=== PATIENT | male | born 1955 | race Hispanic/Latino ===

== ENCOUNTER 2020-03-10 17:09 | Emergency (ER) | payer MEDICARE, OTHER ==
[~2020-03-10] VITALS: Ht 172.7 cm; Wt 72.1 kg
[~2020-03-10 17:09] MED LIST: ALLOPURINOL100 MG PO; AMLODIPINE BESIL1 GM PO; ASPIR 8181 MG PO; ASPIRIN81 MG PO; ATORVASTATIN CA20 MG PO; CALCITRIOL0.25 MCG PO; FERROUS SULFAT325 MG PO; HYDRALAZINE HCL25 MG PO; Hydralazine Hcl PO; ISOSORBIDE MONO20 MG PO; JANUVIA100 MG PO; LANTUS100 UNITS/ SQ; LASIX40 MG PO; LOPRESSOR25 MG PO; METOLAZONE5 MG PO; METOPROLOL TART25 MG PO; PANTOPRAZOLE SO40 MG PO; PLAVIX75 MG PO; ROCALTROL0.25 MCG PO; SODIUM BICARBO650 MG PO; SULFAMETHOXAZO1 EAC1 PO; VITAMIN D3 PO; ZOFRAN ODT4 MG PO
[2020-03-10] MEDS ORDERED: ACETAMINOPHEN 325 MG TAB PO ONE (18:15)
[2020-03-10] MEDS ORDERED: AZITHROMYCIN 500MG/NS 250 ML 250 ML IV SCH (18:15)
[2020-03-10] MEDS ORDERED: CEFTRIAXONE SOD 1 GM/NS 50 ML 50 ML IV ONE (18:15)
[2020-03-10 18:19] LABS: BASOPHILS % 0.3 % (0.0-1.0); EOSINOPHILS % 0.6 % (0.0-6.0); HEMATOCRIT 31.2 % (38.2-49.6); HEMOGLOBIN 9.7 g/dL (14.0-18.0); LYMPHOCYTES # (AUTO) 0.6 (1.0-3.2); LYMPHOCYTES % 18.5 % (18.0-39.1); MEAN CORPUSCULAR HEMOGLOBIN 26.8 pg (28-32); MEAN CORPUSCULAR HGB CONC 31.1 g/dL (31-35); MEAN CORPUSCULAR VOLUME 86.2 fL (81-99); MONOCYTES # (AUTO) 0.2 (0.2-0.8); MONOCYTES % 7.6 % (4.4-11.3); NEUTROPHILS # (AUTO) 2.3 (2.1-6.9); NEUTROPHILS % 72.4 % (38.7-80.0); PLATELET COUNT 76 x10e3/uL (140-360); RED BLOOD COUNT 3.62 x10e6/uL (4.3-5.7); RED CELL DISTRIBUTION WIDTH 17.6 % (11.7-14.4)
[2020-03-10 18:34] LABS: INR 0.89; PROTHROMBIN TIME 12.6 seconds (11.9-14.5)
--- NOTE | 2020-03-10 18:56 | Diagnostic Imaging Report ---
EXAMINATION: CHEST SINGLE (PORTABLE) COMPARISON: None INDICATION: Shortness of breath, fever ^Y ^sob ^[id number] ^1820 DISCUSSION: Frontal view of the chest obtained at 1830 hours. HEART AND MEDIASTINUM: The heart is enlarged. The mediastinum is normal in morphology LINES: AICD lead is intact and terminates in the right ventricle. Battery pack is in the left chest wall. LUNGS/PLEURA: Diffuse hyperinflation suggestive of small airways disease. Central pulmonary vasculature is prominent. No infiltrates or interstitial edema. No pleural effusion or pneumothorax. BONES AND SOFT TISSUES: Median sternotomy wires are intact. There are degenerative changes of the shoulders. The soft tissues are normal. IMPRESSION: 1. Cardiomegaly and central vascular congestion, possibly chronic. No evidence of CHF. 2. Pulmonary hyperinflation suggestive of COPD. No infiltrates. Signed by: Dr. Mary Ellen Plaza MD on 03/10/2020 6:52 PM
[2020-03-10 19:15] LABS: CLARITY,URINE CLEAR (CLEAR); COLOR,URINE YELLOW (YELLOW)
[2020-03-10 19:16] LABS: BILIRUBIN,URINE SMALL (NEGATIVE); KETONES,URINE TRACE (NEGATIVE); LEUKOCYTE ESTERASE ,URINE NEGATIVE (NEGATIVE); NITRITE,URINE NEGATIVE (NEGATIVE); PROTEIN,URINE DIPSTICK >=300 (NEGATIVE); URINE UROBILINOGEN 0.2 mg/dL (0.2 - 1)
[2020-03-10 19:27] LABS: BACTERIA,URINE MANY /HPF; EPITHELIAL CELLS,URINE MANY /LPF; RBC,URINE 0-5 /HPF (0-5); WBC,URINE (MAN) 21-50 /HPF (0-5)
[2020-03-10 19:34] LABS: CREATINE KINASE MB 2.1 ng/mL (0-5.0)
--- NOTE | 2020-03-10 19:42 | Emergency Department Note ---
History of Present Illnes History of Present Illness Chief Complaint: COVID PUI History of Present Illness This is a 64 year old male c/o sob x 1 hr [employer] denies cp denies copd/asthma not on breathing tx former smoker does not drink on dialysis pt last dialysed this past wed (dialysis m/w/f) denies n/v c/o a little diarrhea denies muscle aches/chills pt states he was swabbed at dr's office yesterday went to see pcp for the same came in today because sob is worse. FEVER HERE Historian: Patient Arrival Mode: Car Derrick Helper Required: No Onset (how long ago): hour(s) Radiation: Reports non-radiation Severity: moderate Onset quality: gradual Timing of current episode: constant Progression: unchanged Chronicity: new Context: Denies recent illness Relieving factors: none Exacerbating factors: none Associated symptoms: Reports fever/chills, Reports shortness of breath Treatments prior to arrival: none Past Medical/Family History Physician Review I have reviewed the patient's past medical and family history. Any updates have been documented here. Past Medical History Recent Fever: Yes Clinical Suspicion of Infectio: Yes New/Unexplained Change in Ment: No Past Medical History: Hypertension, Diabetes, Hemodyalisis, Hyperlipedemia Other Medical History: ESRD Other Surgery: Cardiac stents Social History Smoking Cessation: Former smoker Counseling Performed: No Alcohol Use: None Any Illegal Drug Use: No TB Exposure/Symptoms: No Physically hurt or threatened: No Other Last Tetanus: unknown Is patient up to date on immun: Yes Last Flu: utd Last Pneumovax: utd Review of Systems Review of Systems Constitutional: Reports as per HPI, Reports fever EENTM: Reports no symptoms Cardiovascular: Reports no symptoms Respiratory: Reports as per HPI Gastrointestinal: Reports no symptoms Genitourinary: Reports no symptoms Musculoskeletal: Reports no symptoms Integumentary: Reports no symptoms Neurological: Reports no symptoms Psychological: Reports no symptoms Endocrine: Reports no symptoms Hematological/Lymphatic: Reports no symptoms Physical Exam Related Data Allergies: Coded Allergies: No Known Allergies (Unverified , 04/16/16) Triage Vital Signs Vital Signs Date Time Temp Pulse Resp B/P (MAP) Pulse Ox O2 Delivery O2 Flow Rate FiO2 03/10/20 17:44 102.2 64 16 124/62 92 Vital signs reviewed: Yes Physical Exam CONSTITUTIONAL Constitutional: Present well-developed, Present well-nourished HENT HENT: Present normocephalic, Present atraumatic, Present oropharynx clear/moist, Present nose normal HENT L/R: Present left ext ear normal, Present right ext ear normal EYES Eyes: Reports PERRL, Reports conjunctivae normal NECK Neck: Present ROM normal PULMONARY Pulmonary: Present rales (BIBASILAR), Present other (DECREASED BS'S THROUGHOUT) CARDIOVASCULAR Cardiovascular: Present regular rhythm, Present heart sounds normal, Present capillary refill normal, Present normal rate GASTROINTESTINAL Abdominal: Present soft, Present nontender, Present bowel sounds normal GENITOURINARY Genitourinary: Present exam deferred SKIN Skin: Present warm, Present dry MUSCULOSKELETAL Musculoskeletal: Present ROM normal NEUROLOGICAL Neurological: Present alert, Present oriented x 3, Present no gross motor or sensory deficits PSYCHOLOGICAL Psychological: Present mood/affect normal, Present judgement normal Results Laboratory Result Diagram: 03/10/20 7644 Laboratory Laboratory Tests Test 03/10/20 17:50 White Blood Count 3.14 x10e3/uL (4.8-10.8) Red Blood Count 3.62 x10e6/uL (4.3-5.7) Hemoglobin 9.7 g/dL (14.0-18.0) Hematocrit 31.2 % (38.2-49.6) Mean Corpuscular Volume 86.2 fL (81-99) Mean Corpuscular Hemoglobin 26.8 pg (28-32) Mean Corpuscular Hemoglobin Concent 31.1 g/dL (31-35) Red Cell Distribution Width 17.6 % (11.7-14.4) Platelet Count 76 x10e3/uL (140-360) Neutrophils (%) (Auto) 72.4 % (38.7-80.0) Lymphocytes (%) (Auto) 18.5 % (18.0-39.1) Monocytes (%) (Auto) 7.6 % (4.4-11.3) Eosinophils (%) (Auto) 0.6 % (0.0-6.0) Basophils (%) (Auto) 0.3 % (0.0-1.0) Neutrophils # (Auto) 2.3 (2.1-6.9) Lymphocytes # (Auto) 0.6 (1.0-3.2) Monocytes # (Auto) 0.2 (0.2-0.8) Eosinophils # (Auto) 0.0 (0.0-0.4) Basophils # (Auto) 0.0 (0.0-0.1) Absolute Immature Granulocyte (auto 0.02 x10e3/uL (0-0.1) Prothrombin Time 12.6 seconds (11.9-14.5) Prothromb Time International Ratio 0.89 Activated Partial Thromboplast Time 28.0 seconds (23.8-35.5) Urine Color Yellow (YELLOW) Urine Clarity Clear (CLEAR) Urine pH 5 (5 - 7) Urine Specific [place] >=1.030 (1.010-1.025) Urine Protein >=300 (NEGATIVE) Urine Glucose (UA) Negative (NEGATIVE) Urine Ketones Trace (NEGATIVE) Urine Blood Negative (NEGATIVE) Urine Nitrite Negative (NEGATIVE) Urine Bilirubin Small (NEGATIVE) Urine Urobilinogen 0.2 mg/dL (0.2 - 1) Urine Leukocyte Esterase Negative (NEGATIVE) Urine RBC 0-5 /HPF (0-5) Urine WBC 21-50 /HPF (0-5) Urine Epithelial Cells Many /LPF (NONE) Urine Bacteria Many /HPF (NONE) Sodium Level 134 mmol/L (136-145) Potassium Level 4.0 mmol/L (3.5-5.1) Chloride Level 92 mmol/L (98-107) Carbon Dioxide Level 27 mmol/L (22-29) Anion Gap 19.0 mmol/L (8-16) Blood Urea Nitrogen 62 mg/dL (7-26) Creatinine 10.98 mg/dL (0.72-1.25) Estimat Glomerular Filtration Rate 5 ML/MIN (60-) BUN/Creatinine Ratio 6 (6-25) Glucose Level 155 mg/dL (74-118) Lactic Acid Level 1.1 mmol/L (0.5-2.0) Calcium Level 6.6 mg/dL (8.4-10.2) Total Bilirubin 0.3 mg/dL (0.2-1.2) Aspartate Amino Transf (AST/SGOT) 34 IU/L (5-34) Alanine Aminotransferase (ALT/SGPT) 19 IU/L (0-55) Alkaline Phosphatase 67 IU/L (40-150) Creatine Kinase 399 IU/L (30-200) Creatine Kinase MB 2.10 ng/mL (0-5.0) Troponin I 0.150 ng/mL (0-0.300) Total Protein 7.2 g/dL (6.5-8.1) Albumin 3.1 g/dL (3.5-5.0) Globulin 4.1 g/dL (2.3-3.5) Albumin/Globulin Ratio 0.8 (0.8-2.0) Laboratory Tests Test 03/10/20 17:50 White Blood Count 3.14 x10e3/uL (4.8-10.8) Red Blood Count 3.62 x10e6/uL (4.3-5.7) Hemoglobin 9.7 g/dL (14.0-18.0) Hematocrit 31.2 % (38.2-49.6) Mean Corpuscular Volume 86.2 fL (81-99) Mean Corpuscular Hemoglobin 26.8 pg (28-32) Mean Corpuscular Hemoglobin Concent 31.1 g/dL (31-35) Red Cell Distribution Width 17.6 % (11.7-14.4) Platelet Count 76 x10e3/uL (140-360) Neutrophils (%) (Auto) 72.4 % (38.7-80.0) Lymphocytes (%) (Auto) 18.5 % (18.0-39.1) Monocytes (%) (Auto) 7.6 % (4.4-11.3) Eosinophils (%) (Auto) 0.6 % (0.0-6.0) Basophils (%) (Auto) 0.3 % (0.0-1.0) Neutrophils # (Auto) 2.3 (2.1-6.9) Lymphocytes # (Auto) 0.6 (1.0-3.2) Monocytes # (Auto) 0.2 (0.2-0.8) Eosinophils # (Auto) 0.0 (0.0-0.4) Basophils # (Auto) 0.0 (0.0-0.1) Absolute Immature Granulocyte (auto 0.02 x10e3/uL (0-0.1) Prothrombin Time 12.6 seconds (11.9-14.5) Prothromb Time International Ratio 0.89 Activated Partial Thromboplast Time 28.0 seconds (23.8-35.5) Urine Color Yellow (YELLOW) Urine Clarity Clear (CLEAR) Urine pH 5 (5 - 7) Urine Specific [place] >=1.030 (1.010-1.025) Urine Protein >=300 (NEGATIVE) Urine Glucose (UA) Negative (NEGATIVE) Urine Ketones Trace (NEGATIVE) Urine Blood Negative (NEGATIVE) Urine Nitrite Negative (NEGATIVE) Urine Bilirubin Small (NEGATIVE) Urine Urobilinogen 0.2 mg/dL (0.2 - 1) Urine Leukocyte Esterase Negative (NEGATIVE) Urine RBC 0-5 /HPF (0-5) Urine WBC 21-50 /HPF (0-5) Urine Epithelial Cells Many /LPF (NONE) Urine Bacteria Many /HPF (NONE) Creatine Kinase MB 2.10 ng/mL (0-5.0) Troponin I 0.150 ng/mL (0-0.300) Lab results reviewed: Yes Laboratory comments CHEMISTRIES PENDING DUE TO LAB MACHINE DOWN AND SPECIMEN SENT TO ANOTHER LAB Imaging Imaging results reviewed: Yes Impressions Procedure: [id number] DX/CHEST SINGLE (PORTABLE) Exam Date: 03/10/20 Exam Time: 1819 REPORT STATUS: Signed EXAMINATION: CHEST SINGLE (PORTABLE) COMPARISON: None INDICATION: Shortness of breath, fever ^Y ^sob ^[id number] ^1820 DISCUSSION: Frontal view of the chest obtained at 1830 hours. HEART AND MEDIASTINUM: The heart is enlarged. The mediastinum is normal in morphology LINES: AICD lead is intact and terminates in the right ventricle. Battery pack is in the left chest wall. LUNGS/PLEURA: Diffuse hyperinflation suggestive of small airways disease. Central pulmonary vasculature is prominent. No infiltrates or interstitial edema. No pleural effusion or pneumothorax. BONES AND SOFT TISSUES: Median sternotomy wires are intact. There are degenerative changes of the shoulders. The soft tissues are normal. IMPRESSION: 1. Cardiomegaly and central vascular congestion, possibly chronic. No evidence of CHF. 2. Pulmonary hyperinflation suggestive of COPD. No infiltrates. Signed by: Dr. Mary Ellen Plaza MD on 03/10/2020 6:52 PM Procedures 12 Lead ECG Interpretation ECG Interpretation : ECG: ECG 1 Derrick Helper: Interpreted by ED physician Date: Mar 10, 2020 Time: 17:31 Prior ECG tracings: reviewed Rhythm: sinus rhythm Rate: normal (63) QRS axis: left T wave inversion: II, III, aVF, V3, V4, V5, V6 Other findings: LVH Clinical Impression: abnormal ECG Additional Comments QT PROLONGED Assessment & Plan Medical Decision Making MDM CBC, CHEM'S, CARDIACS, ECG, UA/CX, BLOOD CX'S, LACTIC, COVID SWAB, CXR - R/O ELEV WBC, SEPSIS, PNEUMONIA, COVID19, UTI, STEMI/NSTEMI Reassessment Reassessment ADMIT TO COVID UNIT, SPOKE WITH ADAN AND DR Elsy GONZALEZ AND SYED Assessment & Plan Final Impression: (1) ESRD (end stage renal disease) (2) Fever (3) UTI (urinary tract infection) (4) Dyspnea Depart Disposition: ADMITTED Last Vital Signs Date Time Temp Pulse Resp B/P (MAP) Pulse Ox O2 Delivery O2 Flow Rate FiO2 03/10/20 18:00 62 17 115/44 98 03/10/20 17:44 102.2 Home Meds Active Scripts Ondansetron (ZOFRAN ODT) 4 Mg Tab.rapdis, 1 TAB PO Q4-6H PRN for 30 Days Prov:SENTHIL ROLLINS MD 05/21/16 [Hydralazine Hcl] 10 MG TAB No Conflict Check, 20 MG PO Q8HR for 30 Days, 2 Refills Prov:SENTHIL ROLLINS MD 05/21/16 Metoprolol Tartrate (LOPRESSOR) 25 Mg Tab, 12.5 MG PO BID for 30 Days, TAB 2 Refills Prov:SENTHIL ROLLINS MD 04/20/16 [Hydralazine Hcl] 25 MG TAB No Conflict Check, 100 MG PO Q8H for 30 Days, 2 Refills Prov:SENTHIL ROLLINS MD 04/20/16 Calcitriol (ROCALTROL) 0.25 Mcg Capsule, 0.25 MCG PO HS for 30 Days, TAB 2 Refills Prov:SENTHIL ROLLINS MD 04/20/16 Pantoprazole Sodium* (PROTONIX) 40 Mg Tablet., 40 MG PO Q12H for 30 Days, TAB 1 Refill Prov:SENTHIL ROLLINS MD 04/20/16 Reported Medications Metolazone (METOLAZONE) 5 Mg Tablet, 2.5 MG PO PRN, #30 TAB 05/15/16 [Vitamin D3 ] No Conflict Check, 1 TAB PO DAILY 04/29/16 Aspirin (ASPIR 81) 81 Mg Tablet.dr, 81 MG PO 04/29/16 Insulin Glargine (LANTUS) 100 Units/Ml Ml, 12 UNITS SQ DAILY 04/17/16 Furosemide (LASIX) 40 Mg Tablet, 40 MG PO BID, #30 TAB 04/16/16 Allopurinol (ALLOPURINOL) 100 Mg Tablet, 100 MG PO DAILY, #30 TAB 04/16/16 Sitagliptin Phosphate (JANUVIA) 100 Mg Tablet, 50 MG PO HS, #30 TAB 04/16/16 Sodium Bicarbonate (SODIUM BICARBONATE) 650 Mg Tablet, 650 MG PO BID, #30 TAB 04/16/16 Isosorbide Mononitrate (ISOSORBIDE MONONITRATE) 20 Mg Tablet, 60 MG PO DAILY, #30 TAB 04/16/16 Atorvastatin Calcium (ATORVASTATIN CALCIUM) 20 Mg Tablet, 40 MG PO 2100, TAB 04/16/16 Ferrous Sulfate (FERROUS SULFATE) 325 Mg Tablet, 325 MG PO BID 04/16/16 Medications in the ED Acetaminophen 975 mg ONCE ONCE PO Last administered on 03/10/20at 18:19; Admin Dose 975 MG; Start 03/10/20 at 18:15; Stop 03/10/20 at 18:21; Status DC Ceftriaxone Sodium 50 ml @ 100 mls/hr ONCE ONCE IV Last administered on 03/10/20at 18:19; Admin Dose 100 MLS/HR; Start 03/10/20 at 18:15; Stop 03/10/20 at 18:44; Status DC Azithromycin 250 ml @ 200 mls/hr NOW IV Last administered on 03/10/20at 18:21; Admin Dose 200 MLS/HR; Start 03/10/20 at 18:15; Stop 03/17/20 at 18:14 TG BOONE MD Mar 10, 2020 19:42
[2020-03-10 19:43] LABS: ALBUMIN 3.1 g/dL (3.5-5.0); ALBUMIN/GLOBULIN RATIO 0.8 (0.8-2.0); CREATININE, SERUM 10.98 mg/dL (0.72-1.25)
[2020-03-10 19:50] LABS: CALCIUM 6.6 mg/dL (8.4-10.2)
[2020-03-10] MEDS ORDERED: CEFTRIAXONE SOD 1 GM/NS 50 ML 50 ML IV SCH (20:00)
[2020-03-10] MEDS ORDERED: ONDANSETRON HCL INJ 2MG/ML 2ML 2 MG/ML VIAL IV PRN (20:00)
[2020-03-10] MEDS ORDERED: PANTOPRAZOLE SOD 40 MG TABEC PO SCH (20:30)
[2020-03-10] MEDS ORDERED: ZOLPIDEM TARTRATE 5 MG TAB PO PRN (20:45)
[2020-03-10] MEDS ORDERED: CALCITRIOL 0.25 MCG CAP PO SCH (21:00)
[2020-03-10] MEDS ORDERED: ATORVASTATIN 20 MG TAB PO SCH (21:00)
--- NOTE | 2020-03-10 22:03 | Consultation ---
DATE OF CONSULTATION: Pulmonary Critical Care Consultation CHIEF COMPLAINT: Dyspnea and fatigue. HISTORY OF PRESENT ILLNESS: The patient is a 64-year-old man with diabetes and coronary artery disease. He has end-stage renal disease and has been on dialysis for 3 years. He now complains of some increased fatigue and mild shortness of breath. He does not complain of cough or fevers. He has no chest pain. He has no nausea or vomiting. PAST SURGICAL HISTORY: 1. Status post coronary artery bypass grafting 3 years ago. 2. Status post pacemaker. PAST MEDICAL HISTORY: 1. End-stage renal disease. 2. Diabetes. 3. Hypertension. 4. Coronary artery disease. ALLERGIES: NO KNOWN DRUG ALLERGIES. SOCIAL HISTORY: The patient quit smoking 12 years ago. He is not a drinker. FAMILY HISTORY: Family history is significant for diabetes. REVIEW OF SYSTEMS: No fevers. No headache. No neck pain. He has some fatigue and mild shortness of breath. No cough. No chest pain. He has no nausea or vomiting. He has no leg edema. PHYSICAL EXAMINATION: VITAL SIGNS: The patient is afebrile. Blood pressure is 120/54, saturation is 96%, and the T-max is 102.2. Pulse is 59. HEENT: Shows no facial swelling or erythema. CARDIAC: Reveals regular rate and rhythm with a normal S1 and S2. LUNGS: Auscultation of lungs reveals crackles at the bases. There is no wheezing. ABDOMEN: Soft, nontender. There is no rebound or guarding. EXTREMITIES: Shows no leg edema or calf tenderness. There is no cyanosis or clubbing. SKIN: Shows no rashes. NEUROLOGIC: Shows no focal abnormalities. RADIOGRAPHIC DATA: Chest x-ray shows cardiomegaly and some mild vascular congestion. Urinalysis shows 25 to 50 white blood cells. IMPRESSION: 1. Fever and possible coronavirus disease 2019 infection. 2. Urinary tract infection. 3. End-stage renal disease. 4. Diabetes. 5. Hypertension. 6. Coronary artery disease. PLAN: 1. Begin antibiotics to cover for urinary tract infection. 2. Await results of COVID-19 testing. 3. Continue to monitor and control blood sugars. 4. Dialysis as needed. Nick Shore MD MARISEL/CELINA /[id number]
--- NOTE | 2020-03-10 23:29 | NUR ---
REPORT CALLED TO [facility] ([address], [address]) AT THIS TIME.
[2020-03-11 00:22] VITALS: BP 129/58
[2020-03-11] MEDS ORDERED: ASPIRIN 81 MG CHEW TAB PO SCH (06:00)
[2020-03-11] MEDS ORDERED: METOPROLOL TARTRATE 25 MG TAB PO SCH (09:00)
[2020-03-11] MEDS ORDERED: ALLOPURINOL 100 MG TAB PO SCH (09:00)
[2020-03-11] MEDS ORDERED: INSULIN GLARGINE 100 UNITS/ML VIAL SQ SCH (09:00)
[2020-03-11] MEDS ORDERED: SODIUM BICARBONATE 650 MG TAB PO SCH (09:00)
[2020-03-11] MEDS ORDERED: FERROUS SULFATE 325 MG TAB PO SCH (09:00)
== END 2020-03-11 00:26 | disposition other institution (70) ==
LOC: ER 17:09 → ERHOLD 19:55 → UNDOADMIN 19:55 → ER 03-11 00:26
DX: R06.02 Shortness of breath (principal); R50.9 Fever, unspecified; U07.1 COVID-19; I12.0 Hypertensive chronic kidney disease with stage 5 chronic kidney disease or end stage renal disease; E11.22 Type 2 diabetes mellitus with diabetic chronic kidney disease; N18.6 End stage renal disease; Z99.2 Dependence on renal dialysis; E78.5 Hyperlipidemia, unspecified; Z95.5 Presence of coronary angioplasty implant and graft
CPT/HCPCS: 36415; 71045; 80053; 81001; 82550; 82553; 83605; 84484; 85025; 85610; 85730; 87040; 87086; 87635; 93005; 99284; J0456; J0696

== ENCOUNTER 2020-03-15 11:31 | Emergency (ER) | payer MEDICARE ==
[~2020-03-15] VITALS: Ht 172.7 cm; Wt 72.1 kg
--- NOTE | 2020-03-15 11:54 | NUR ---
daughter Ms. Wagner called to check on patient and to offer information about client being a dialysis dependent diabetic who is also COVID+.
--- NOTE | 2020-03-15 11:55 | NUR ---
seen by dr olsen. rt notifed of need for vapo therm stat
[2020-03-15 12:04] LABS: BASOPHILS % 0.1 % (0.0-1.0); HEMATOCRIT 29.7 % (38.2-49.6); HEMOGLOBIN 9.3 g/dL (14.0-18.0); LYMPHOCYTES # (AUTO) 0.3 (1.0-3.2); MEAN CORPUSCULAR HEMOGLOBIN 27.2 pg (28-32); MEAN CORPUSCULAR HGB CONC 31.3 g/dL (31-35); MEAN CORPUSCULAR VOLUME 86.8 fL (81-99); MONOCYTES # (AUTO) 0.5 (0.2-0.8); MONOCYTES % 5.2 % (4.4-11.3); NEUTROPHILS # (AUTO) 8.2 (2.1-6.9); NEUTROPHILS % 91.1 % (38.7-80.0); PLATELET COUNT 145 x10e3/uL (140-360); RED BLOOD COUNT 3.42 x10e6/uL (4.3-5.7); RED CELL DISTRIBUTION WIDTH 17.4 % (11.7-14.4)
[2020-03-15 12:16] LABS: INR 0.95; PROTHROMBIN TIME 13.2 seconds (11.9-14.5)
[2020-03-15 12:24] LABS: ALBUMIN 2.6 g/dL (3.5-5.0); ALBUMIN/GLOBULIN RATIO 0.7 (0.8-2.0); ANION GAP 20.2 mmol/L (8-16); CREATININE, SERUM 7.65 mg/dL (0.72-1.25); POTASSIUM 4.2 mmol/L (3.5-5.1)
[2020-03-15 12:27] LABS: CALCIUM 6.8 mg/dL (8.4-10.2)
--- NOTE | 2020-03-15 12:29 | NUR ---
informed dr carpio and dr olsen of calcium 6.4 and lactic 2.4; pretty states pt norm d/t dialysis. no further orders at this time. continue close monitor.
[2020-03-15 12:30] LABS: CREATINE KINASE MB 1.1 ng/mL (0-5.0)
[2020-03-15 12:37] LABS: B-TYPE NATRIURETIC PEPTIDE2 603.5 pg/mL (0-100)
[2020-03-15] MEDS ORDERED: ALBUMIN 25% 25GM 100ML 0.25 GM/ML BTL IV ONE (13:00)
--- NOTE | 2020-03-15 13:15 | Emergency Department Note ---
History of Present Illnes History of Present Illness Chief Complaint: COVID PUI History of Present Illness This is a 64 year old male dx covid here this week and sent to [facility] and discharged 2 days ago and now here for worse symptoms. pt aaox4. awake alert, but in severe distress. md/rn/at bedside. pt also dialysis m/w/f and due today. pt complaint. sats in 80's. 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 Any updates have been documented here. Past Medical History Recent Fever: Yes Clinical Suspicion of Infectio: Yes New/Unexplained Change in Ment: No Past Medical History: Hypertension, Diabetes, CAD, Hemodyalisis, Hyperlipedemia Other Medical History: ESRD Other Surgery: Cardiac stents Social History Smoking Cessation: Former smoker Counseling Performed: No Alcohol Use: None Any Illegal Drug Use: No TB Exposure/Symptoms: No Physically hurt or threatened: No Family History Family history of heart diseas: Yes Other Last Tetanus: unknown Last Flu: y Last Pneumovax: y Review of Systems Review of Systems Constitutional: Reports as per HPI EENTM: Reports no symptoms Cardiovascular: Reports no symptoms Respiratory: Reports as per HPI, Reports cough, Reports dyspnea, Reports dyspnea on exertion Gastrointestinal: Reports no symptoms Genitourinary: Reports no symptoms Musculoskeletal: Reports no symptoms Integumentary: Reports no symptoms Neurological: Reports no symptoms Psychological: Reports no symptoms Endocrine: Reports no symptoms Hematological/Lymphatic: Reports no symptoms Physical Exam Related Data Allergies: Coded Allergies: No Known Allergies (Unverified , 04/16/16) Triage Vital Signs Vital Signs Date Time Temp Pulse Resp B/P (MAP) Pulse Ox O2 Delivery O2 Flow Rate FiO2 03/15/20 11:40 97.6 77 34 123/61 82 Vital signs reviewed: Yes Physical Exam CONSTITUTIONAL Constitutional: Present well-developed, Present well-nourished HENT HENT: Present normocephalic, Present atraumatic, Present oropharynx clear/moist, Present nose normal HENT L/R: Present left ext ear normal, Present right ext ear normal EYES Eyes: Reports PERRL, Reports conjunctivae normal NECK Neck: Present ROM normal PULMONARY Pulmonary: Present respiratory distress (tachypneic, low o2 sat), Present other (decreased BS throughout and rales bilat 1/[address] up) CARDIOVASCULAR Cardiovascular: Present regular rhythm, Present heart sounds normal, Present capillary refill normal, Present normal rate GASTROINTESTINAL Abdominal: Present soft, Present nontender, Present bowel sounds normal GENITOURINARY Genitourinary: Present exam deferred SKIN Skin: Present warm, Present dry MUSCULOSKELETAL Musculoskeletal: Present ROM normal NEUROLOGICAL Neurological: Present alert, Present oriented x 3, Present no gross motor or sensory deficits PSYCHOLOGICAL Psychological: Present mood/affect normal, Present judgement normal Results Laboratory Result Diagram: 03/15/20 1145 03/15/20 1145 Laboratory Laboratory Tests Test 03/15/20 11:45 White Blood Count 8.97 x10e3/uL (4.8-10.8) Red Blood Count 3.42 x10e6/uL (4.3-5.7) Hemoglobin 9.3 g/dL (14.0-18.0) Hematocrit 29.7 % (38.2-49.6) Mean Corpuscular Volume 86.8 fL (81-99) Mean Corpuscular Hemoglobin 27.2 pg (28-32) Mean Corpuscular Hemoglobin Concent 31.3 g/dL (31-35) Red Cell Distribution Width 17.4 % (11.7-14.4) Platelet Count 145 x10e3/uL (140-360) Neutrophils (%) (Auto) 91.1 % (38.7-80.0) Lymphocytes (%) (Auto) 3.0 % (18.0-39.1) Monocytes (%) (Auto) 5.2 % (4.4-11.3) Eosinophils (%) (Auto) 0.0 % (0.0-6.0) Basophils (%) (Auto) 0.1 % (0.0-1.0) Neutrophils # (Auto) 8.2 (2.1-6.9) Lymphocytes # (Auto) 0.3 (1.0-3.2) Monocytes # (Auto) 0.5 (0.2-0.8) Eosinophils # (Auto) 0.0 (0.0-0.4) Basophils # (Auto) 0.0 (0.0-0.1) Absolute Immature Granulocyte (auto 0.05 x10e3/uL (0-0.1) Prothrombin Time 13.2 seconds (11.9-14.5) Prothromb Time International Ratio 0.95 Activated Partial Thromboplast Time 23.0 seconds (23.8-35.5) Sodium Level 137 mmol/L (136-145) Potassium Level 4.2 mmol/L (3.5-5.1) Chloride Level 94 mmol/L (98-107) Carbon Dioxide Level 27 mmol/L (22-29) Anion Gap 20.2 mmol/L (8-16) Blood Urea Nitrogen 58 mg/dL (7-26) Creatinine 7.65 mg/dL (0.72-1.25) Estimat Glomerular Filtration Rate 7 ML/MIN (60-) BUN/Creatinine Ratio 8 (6-25) Glucose Level 358 mg/dL (74-118) Lactic Acid Level 2.4 mmol/L (0.5-2.0) Calcium Level 6.8 mg/dL (8.4-10.2) Total Bilirubin 0.5 mg/dL (0.2-1.2) Aspartate Amino Transf (AST/SGOT) 29 IU/L (5-34) Alanine Aminotransferase (ALT/SGPT) 20 IU/L (0-55) Alkaline Phosphatase 75 IU/L (40-150) Creatine Kinase 195 IU/L (30-200) Creatine Kinase MB 1.10 ng/mL (0-5.0) Troponin I 0.268 ng/mL (0-0.300) B-Type Natriuretic Peptide 603.5 pg/mL (0-100) Total Protein 6.6 g/dL (6.5-8.1) Albumin 2.6 g/dL (3.5-5.0) Globulin 4.0 g/dL (2.3-3.5) Albumin/Globulin Ratio 0.7 (0.8-2.0) Lab results reviewed: Yes Imaging Imaging results reviewed: Yes Impressions Procedure: [id number] DX/CHEST SINGLE (PORTABLE) Exam Date: 03/15/20 Exam Time: 1218 REPORT STATUS: Signed EXAMINATION: CHEST SINGLE (PORTABLE) INDICATION: Hypoxia, shortness of breath COMPARISON: None FINDINGS: LINES/TUBES:Left chest pacer LUNGS:The lungs are well-inflated. Mild bibasilar patchy opacities. PLEURA:No pleural effusion or pneumothorax. MEDIASTINUM:The cardiomediastinal silhouette appears normal in size and shape. BONES/SOFT TISSUES:No acute osseous injury. Sternotomy wires in place ABDOMEN:No free air under the diaphragm. IMPRESSION: Mild bibasilar patchy opacities may represent pneumonitis including of viral etiologies in the proper clinical setting. Signed by: Silvina Brand MD on 03/15/2020 1:15 PM Procedures 12 Lead ECG Interpretation ECG Interpretation : ECG: ECG 1 Iron Pourer: Interpreted by ED physician Date: Mar 15, 2020 Time: 11:36 Rhythm: sinus rhythm Rate: normal (64) QRS axis: left Other findings: LVH Clinical Impression: abnormal ECG (NON-SPEC ST-TW CHANGES, PROLONGED QT) Critical Care Time Critical care time exclusive o: separately billable procedures Critcal care necessary due to: respiratory failure Critcal care time spent by me: discussion w consultants, evaluation patient r esponse to tx, examination of patient, obtaining hx from patient/surrogate, order/review laboratory studies, pulse oximetry, re-evaluation of patient condition Assessment & Plan Medical Decision Making MDM CBC, CHEM, ECG, CARDIAC MARKERS, LACTIC, BLOOD CX'S, CXR - R/O PNEUMONIA, ESRD WITH VOLUME OVERLOAD, STEMI/NSTEMI, SEPSIS Reassessment Reassessment LACTIC ELEVATED BUT PT IS ESRD AND LIKELY VOLUME OVERLOADED. I BELIEVE ELEV LACTIC IS COMBINATION OF HYPOXIA FROM VOLUME OVERLOAD AND VIRAL/COVID - WILL NOT GIVE IVF'S. PT NEEDS ACUTE HEMODIALYSIS - DR CORREA CALLED TO START HD HERE. BLOD CX'S DRAWN ON ARRIVAL, IV ABX'S GIVEN ADMINISTRATION SAYS NO ICU BEDS HERE - WILL ATTEMPT TRANSFER I SPOKE WITH DR CAMPOS AT [facility] WHO ACCEPTS PT FOR TRANSFER - WILL FINISH HEMODIALYSIS BEFORE HE TRANSFERS Assessment & Plan Final Impression: (1) Pneumonia (2) Hypoxia (3) ESRD (end stage renal disease) (4) Dyspnea Depart Disposition: TRANS TO OTHER [facility] Last Vital Signs Date Time Temp Pulse Resp B/P (MAP) Pulse Ox O2 Delivery O2 Flow Rate FiO2 03/15/20 12:16 66 22 89 03/15/20 11:40 97.6 Home Meds Active Scripts Ondansetron (ZOFRAN ODT) 4 Mg Tab.rapdis, 1 TAB PO Q4-6H PRN for 30 Days Prov:SENTHIL ROLLINS MD 05/21/16 [Hydralazine Hcl] 10 MG TAB No Conflict Check, 20 MG PO Q8HR for 30 Days, 2 Refills Prov:SENTHIL ROLLINS MD 05/21/16 Metoprolol Tartrate (LOPRESSOR) 25 Mg Tab, 12.5 MG PO BID for 30 Days, TAB 2 Refills Prov:SENTHIL ROLLINS MD 04/20/16 [Hydralazine Hcl] 25 MG TAB No Conflict Check, 100 MG PO Q8H for 30 Days, 2 Refills Prov:SENTHIL ROLLINS MD 04/20/16 Calcitriol (ROCALTROL) 0.25 Mcg Capsule, 0.25 MCG PO HS for 30 Days, TAB 2 Refills Prov:SENTHIL ROLLINS MD 04/20/16 Pantoprazole Sodium* (PROTONIX) 40 Mg Tablet.dr, 40 MG PO Q12H for 30 Days, TAB 1 Refill Prov:SENTHIL ROLLINS MD 04/20/16 Reported Medications Metolazone (METOLAZONE) 5 Mg Tablet, 2.5 MG PO PRN, #30 TAB 05/15/16 [Vitamin D3 ] No Conflict Check, 1 TAB PO DAILY 04/29/16 Aspirin (ASPIR 81) 81 Mg Tablet.dr, 81 MG PO 04/29/16 Insulin Glargine (LANTUS) 100 Units/Ml Ml, 12 UNITS SQ DAILY 04/17/16 Furosemide (LASIX) 40 Mg Tablet, 40 MG PO BID, #30 TAB 04/16/16 Allopurinol (ALLOPURINOL) 100 Mg Tablet, 100 MG PO DAILY, #30 TAB 04/16/16 Sitagliptin Phosphate (JANUVIA) 100 Mg Tablet, 50 MG PO HS, #30 TAB 04/16/16 Sodium Bicarbonate (SODIUM BICARBONATE) 650 Mg Tablet, 650 MG PO BID, #30 TAB 04/16/16 Isosorbide Mononitrate (ISOSORBIDE MONONITRATE) 20 Mg Tablet, 60 MG PO DAILY, #30 TAB 04/16/16 Atorvastatin Calcium (ATORVASTATIN CALCIUM) 20 Mg Tablet, 40 MG PO 2099, TAB 04/16/16 Ferrous Sulfate (FERROUS SULFATE) 325 Mg Tablet, 325 MG PO BID 04/16/16 Medications in the ED Albumin Human 100 gm ONCE ONCE IV ; Start 03/15/20 at 13:00; Stop 03/15/20 at 13:01; Status UNV TG BOONE MD Mar 15, 2020 13:15
--- NOTE | 2020-03-15 13:18 | Diagnostic Imaging Report ---
EXAMINATION: CHEST SINGLE (PORTABLE) INDICATION: Hypoxia, shortness of breath COMPARISON: None FINDINGS: LINES/TUBES:Left chest pacer LUNGS:The lungs are well-inflated. Mild bibasilar patchy opacities. PLEURA:No pleural effusion or pneumothorax. MEDIASTINUM:The cardiomediastinal silhouette appears normal in size and shape. BONES/SOFT TISSUES:No acute osseous injury. Sternotomy wires in place ABDOMEN:No free air under the diaphragm. IMPRESSION: Mild bibasilar patchy opacities may represent pneumonitis including of viral etiologies in the proper clinical setting. Signed by: Silvina Brand MD on 03/15/2020 1:15 PM
--- NOTE | 2020-03-15 13:23 | NUR ---
CALLED PT DAUGHTER [phone] FOR PT DENTURES AND GLUE
[2020-03-15] MEDS ORDERED: ALBUMIN IV ONE (13:30)
[2020-03-15] MEDS ORDERED: CEFTRIAXONE SOD 1 GM/NS 50 ML 50 ML IV ONE (13:45)
--- NOTE | 2020-03-15 14:04 | NUR ---
REMAINS ON VAPO THERM AT 70% FIO2 AT 20 LPM. PT TOLERATING VERY WELL. RESP RATE DOWN TO 18 AND SATS 97%. PT STATES FEELING MUCH BETTER AND DECREASED SOB.
--- NOTE | 2020-03-15 14:04 | NUR ---
DIALYSIS CONSENT ON CHART
[2020-03-15] MEDS ORDERED: AZITHROMYCIN 500MG/NS 250 ML 250 ML IV ONE (14:15)
[2020-03-15] MEDS ORDERED: SODIUM CHLORIDE 0.9% 1000ML 1,000 ML ONE (14:39)
[2020-03-15] MEDS ORDERED: CEFTRIAXONE SOD 1 GM VIAL ONE (14:40)
--- NOTE | 2020-03-15 14:54 | NUR ---
DIALYSIS NURSE HERE TO DO DIALYSIS ON PT PER DR CORREA.
--- NOTE | 2020-03-15 16:59 | NUR ---
2ND CALL TO [facility] FOR DIET
--- NOTE | 2020-03-15 17:16 | NUR ---
tray to pt
--- NOTE | 2020-03-15 17:30 | NUR ---
report to tiara at [facility] icu bed 5.
--- NOTE | 2020-03-15 17:32 | NUR ---
called [facility] for transport to [facility] per policy
--- NOTE | 2020-03-15 17:50 | NUR ---
per dr carpio, spoke with юлия in respiratory to titrate fio2 down on pt to see if he can tolerate it.
--- NOTE | 2020-03-15 18:48 | NUR ---
respiratory now here
--- NOTE | 2020-03-15 19:21 | Consultation ---
DATE OF CONSULTATION: Pulmonary Critical Care consultation. CHIEF COMPLAINT: Worsening dyspnea and COVID-19 infection. REFERRING PHYSICIAN: Reji Hughes MD. HISTORY OF PRESENT ILLNESS: The patient is a 64-year-old man with a history of end-stage renal disease, diabetes, and coronary artery disease. He has been on dialysis for 3 years. He was recently evaluated at [facility] on March 10 with shortness of breath and fatigue. He tested positive for COVID. He was subsequently transferred to [facility]. He stayed for 2 days and was discharged home. He says that he left the hospital 2-3 days ago. He had dialysis 2 days ago. Since arriving home, he has noticed worsening dyspnea and fatigue. He has some cough. He has minimal fevers. He is not complaining of chest pain. He has no nausea or vomiting. PAST SURGICAL HISTORY: 1. Status post coronary bypass grafting 3 years ago. 2. Status post pacemaker. PAST MEDICAL HISTORY: 1. End-stage renal disease. 2. Diabetes. 3. Hypertension. 4. Coronary artery disease. ALLERGIES: NO KNOWN DRUG ALLERGIES. BODY ATER ALLERGIES: SOCIAL HISTORY: The patient quit smoking 12 years ago. He is not a drinker. FAMILY HISTORY: Significant for diabetes. REVIEW OF SYSTEMS: The patient is not complaining of fevers. He has no headache. He has worsening dyspnea. He has some cough. He has no chest pain. He has no nausea or vomiting. He has no leg edema. PHYSICAL EXAMINATION: VITAL SIGNS: The patient is afebrile. The T-max was 100.2. The blood pressure is 123/61 and the saturation is in the low 90s. He is on 100% non-rebreather. He is breathing 22 times a minute. HEENT: No facial swelling or erythema. CARDIAC: Reveals regular rate and rhythm with normal S1 and S2. LUNGS: Auscultation of the lungs reveals crackles in both lung richardson. ABDOMEN: Soft, nontender. There is no rebound or guarding. EXTREMITIES: No leg edema or calf tenderness. There is no cyanosis or clubbing. SKIN: No rashes. NEUROLOGICAL: No focal abnormalities. LABORATORY DATA: White blood cell count is 8.9, hemoglobin is 9.3. The platelet count is 145,000. The BUN to creatinine ratio is 58 to 7.65. Other electrolytes within normal limits. Lactic acid is 2.4 and the BNP is 603.5. RADIOGRAPHIC DATA: Bilateral pulmonary infiltrates. IMPRESSION: 1. Acute respiratory failure. 2. COVID-19 and viral pneumonia. 3. End-stage renal disease. 4. Diabetes. 5. Hypertension. 6. Coronary artery disease. PLAN: 1. Continue 100% oxygen. 2. The patient needs dialysis. 3. Begin dexamethasone. 4. Rocephin and Zithromax. 5. Anticoagulation. Nick Shore MD Katia/MODL /[id number]
--- NOTE | 2020-03-15 19:49 | NUR ---
BEDSIDE REPORT GIVEN TO [facility], PROVIDED WITH PAPERWORK FOR TRANSFER.
--- NOTE | 2020-03-15 20:01 | Consultation ---
DATE OF CONSULTATION: 03/15/2020 HISTORY OF PRESENT ILLNESS: A 64-year-old gentleman with known to our Nephrology service; underlying end-stage renal disease, dialyzes with my associate, Dr. Gonzales, at [facility]. Today's visit dialysis day was here in the emergency room, 15 days ago tested positive of COVID, was transferred out, subsequently discharged, presents with shortness of breath along with cough. LABORATORY DATA: His white count is found to be 8.9, hemoglobin 9.3. Potassium 4.2 with a lactic acid 2.4, calcium 6.8. BNP 603. Chest x-ray shows bilateral bibasilar patchy opacities, may represent pneumonitis including bilateral etiology. Please see official report. ALLERGIES: NO APPARENT DRUG ALLERGIES. REVIEW OF SYSTEMS: Negative for nausea, vomiting, or abdominal pain. MEDICATIONS: Currently, the patient is started on azithromycin and ceftriaxone. SOCIAL HISTORY: Does not smoke or drink. PAST MEDICAL HISTORY: Significant for diabetes, hypertension, end-stage renal disease. PHYSICAL EXAMINATION: GENERAL: Awake, alert, and oriented x3, sitting up in no apparent distress on oxygen. VITAL SIGNS: Blood pressure 123/61, pulse rate 77, afebrile, respiratory rate 34, on 20 L oxygen. HEAD AND NECK: Cornea clear, mucosa moist. LUNGS: Bibasilar rales. HEART: S1, S2 audible. ABDOMEN: Soft, nontender. EXTREMITIES: Lower extremity no edema. IMPRESSION AND PLAN: Must rule out COVID-induced pneumonia. There is an element of fluid buildup, fluid overload, perhaps congestive heart failure, but I think I believe that is playing a minor role hypocalcemia, multifactorial. His total albumin is 2.6. Serum calcium corrects to approximately 7.5 range. ID will be consulted. Plan on urgent hemodialysis. Discussed with RN. Discussed with Dr. Hughes, ER physician. Orders for dialysis given, please see orders. MD HARLAN Zarate/MODL /[id number]
--- NOTE | 2020-03-15 21:07 | Progress Note ---
DATE: 03/15/2020 Dialysis Note SUBJECTIVE: The patient is awake, alert, sitting up, on oxygen. OBJECTIVE: VITAL SIGNS: Blood pressure is 123/56, pulse is 99, afebrile, respiratory rate 28. HEAD AND NECK: Cornea clear. Mucosa moist. LUNGS: Bibasilar rales. HEART: S1, S2 audible. ABDOMEN: Soft. EXTREMITIES: Lower extremity, no edema. LABORATORY DATA: Sodium 140, potassium 3, bicarb 35, calcium 2.5. Blood flow 400, dialysate 800, UF as tolerated. IMPRESSION AND PLAN: End-stage renal disease, on dialysis. MD HARLAN Zarate/MODL /[id number]
== END 2020-03-15 19:50 | disposition other institution (70) ==
LOC: ER 11:38
DX: R09.02 Hypoxemia (principal); R06.00 Dyspnea, unspecified; J18.9 Pneumonia, unspecified organism; I12.0 Hypertensive chronic kidney disease with stage 5 chronic kidney disease or end stage renal disease; E11.22 Type 2 diabetes mellitus with diabetic chronic kidney disease; N18.6 End stage renal disease; Z99.2 Dependence on renal dialysis; Z95.5 Presence of coronary angioplasty implant and graft
CPT/HCPCS: 36415; 71045; 80053; 82550; 82553; 83605; 83880; 84484; 85025; 85610; 85730; 87040; 93005; 99285; J0456; J0696; J7030; P9047